=== PATIENT | female | born 2000 | race African-American/Black ===

== ENCOUNTER 2019-09-16 20:29 | Emergency (ER) | payer OTHER ==
[~2019-09-16] VITALS: Ht 172.7 cm; Wt 57.1 kg
[~2019-09-16 20:29] MED LIST: CITRATE OF MAG296 ML PO; IBUPROFEN 200200 M1 PO; PENICILLIN VK500 M1 PO
[2019-09-16 20:35] VITALS: BP 133/70
[2019-09-16] MEDS ORDERED: BACTRIM DS TAB1 EACH PO (21:03)
[2019-09-16] MEDS ORDERED: NAPROSYN500 MG PO (21:03)
== END 2019-09-16 21:42 | disposition home or self-care (01) ==
LOC: ER 20:29
DX: L05.01 Pilonidal cyst with abscess (principal)

== ENCOUNTER 2020-12-20 12:11 | Emergency (ER) | payer OTHER ==
[~2020-12-20] VITALS: Ht 172.7 cm; Wt 57.1 kg
[~2020-12-20 12:11] MED LIST changes: +BACTRIM DS TAB1 EACH PO; +NAPROSYN500 MG PO
[2020-12-20] MEDS ORDERED: AMOXICILLIN500 M1 PO (14:05)
[2020-12-20 14:40] VITALS: BP 119/60
== END 2020-12-20 14:41 | disposition home or self-care (01) ==
LOC: ER 12:11
DX: J02.9 Acute pharyngitis, unspecified (principal); R51.9 Headache, unspecified; Z20.822 Contact with and (suspected) exposure to COVID-19